=== PATIENT | female | born 2000 | race Caucasian/White ===

== ENCOUNTER 2018-06-27 12:47 | Emergency (ER) | payer OTHER ==
[~2018-06-27] VITALS: Ht 160 cm; Wt 66.2 kg
[~2018-06-27 12:47] MED LIST: MOTRIN800 MG PO; OMEPRAZOLE20 M2 PO
[2018-06-27 12:53] VITALS: Ht 160 cm; Wt 66.2 kg
[2018-06-27 14:18] LABS: BASOPHIL % 0.1 % (0-2); PLATELET COUNT 323 x10^3mcL (130-400); RED CELL DISTRIBUTION WIDTH 13.3 % (11.5-14.5)
[2018-06-27 14:31] LABS: CALCIUM 9.3 mg/dL (8.5-10.1); CARBON DIOXIDE 26.1 mmol/L (21-32); CHLORIDE SERUM 102 mmol/L (98-107); CREATININE SERUM 0.7 mg/dL (0.6-1.0); GFR1 > 60 mL/min; GLUCOSE SERUM 98 mg/dL (74-106); POTASSIUM SERUM 4.3 mmol/L (3.5-5.1); SODIUM SERUM 136 mmol/L (136-145)
[2018-06-27 14:40] LABS: ALBUMIN 4.4 g/dL (3.4-5.0); ALKALINE PHOSPHATASE 98 U/L (46-116); ALT/SGPT 23 U/L (14-59); AST/SGOT 8 U/L (15-37); BILIRUBIN TOTAL 0.4 mg/dL (0.20-1.00); T4(THYROXINE) 8.6 ug/dL (4.7-13.3); TOTAL PROTEIN, SERUM 7.8 g/dL (6.4-8.2)
[2018-06-27 15:06] LABS: AMPHETAMINE QUAL UR NONE DETECTED (See below)
[2018-06-27 18:29] VITALS: BP 151/97
== END 2018-06-27 18:29 | disposition home or self-care (01) ==
LOC: ED 12:47
PROVIDERS: Emergency Medicine
DX: F41.9 Anxiety disorder, unspecified (principal)
CPT/HCPCS: G0480; J0132; J2405